=== PATIENT | female | born 1940 | race Caucasian/White ===

== ENCOUNTER → 2018-07-01 | Outpatient (CLI) | payer MEDICARE, BC ==
--- NOTE | 2018-07-01 13:39 | US ---
EXAMINATION TYPE: US carotid duplex BILAT DATE OF EXAM: 07/01/2018 COMPARISON: US 2010 CLINICAL HISTORY: 77-year-old female Z85.3 personal history of malignant neoplasm breast. Syncope and Collapse. Patient fell 4 days ago. Lightheadedness. TECHNIQUE: Carotid duplex ultrasound examination. Indirect Doppler criteria was utilized. FINDINGS: EXAM MEASUREMENTS: RIGHT: Peak Systolic Velocity (PSV) cm/sec ----- Right CCA: 76.4 ----- Right ICA: 91.0 ----- Right ECA: 77.9 ICA/CCA ratio: 1.2 RIGHT: End Diastole cm/sec ----- Right CCA: 21.2 ----- Right ICA: 24.1 ----- Right ECA: 8.1 LEFT: Peak Systolic Velocity (PSV) cm/sec ----- Left CCA: 67.7 ----- Left ICA: 104.3 ----- Left ECA: 86.6 ICA/CCA ratio: 1.5 LEFT: End Diastole cm/sec ----- Left CCA: 16.0 ----- Left ICA: 30. ----- Left ECA: 0.0 VERTEBRALS (direction of flow): Right Vertebral: Antegrade Left Vertebral: Antegrade Rhythm: Normal Mild to moderate atherosclerotic changes bilateral carotid bifurcations, left greater than right. Tor tuous left ICA. IMPRESSION: No hemodynamically significant stenosis appreciated in either internal carotid artery. Criteria for Assigning % of Stenosis / Diameter reduction (Estimation based on the indirect measurements of the internal carotid artery velocities (ICA PSV). 1. Normal (no stenosis)=ICA PSV < 125 cm/s: ratio < 2.0: ICA EDV<40 cm/s. 2. Less than 50% stenosis=ICA PSV < 125 cm/s: ratio < 2.0: ICA EDV<40 cm/s. 3. 50 to 69% stenosis=ICA PSV of 125 to 230 cm/s: ration 2.0 ? 4.0: ICA EDV 40-100 cm/s. 4. Greater than 70% stenosis to near occlusion= ICA PSV > 230 cm/s: ratio > 4.0: ICA EDV > 100 cm/s. 5. Near occlusion= ICA PSV velocities may be low or undetectable: variable ratio and ICA EDV. 6. Total occlusion=unable to detect flow.
--- NOTE | 2018-07-01 14:37 | CT ---
EXAMINATION TYPE: CT brain wo con DATE OF EXAM: 07/01/2018 COMPARISON: 11/10/2010 HISTORY: Fall with frontal injury 06/27/18 CT DLP: 926.5 mGycm Automated exposure control for dose reduction was used. FINDINGS: Nasal septal deviation noted. Dense atherosclerotic change of the vertebral arteries. Intracranial at herosclerotic change of the carotid arteries. No midline shift or mass effect. Mild to moderate generalized degenerative change. Low-attenuation th e white matter is nonspecific but most typical remote microvascular ischemia. Calvarium intact. Hyperostosis of the frontal bone noted. IMPRESSION: DEGENERATIVE AND NONSPECIFIC WHITE MATTER CHANGES MOST TYPICAL REMOTE MICROVASCULAR ISCHEMIA. NO ACUT E HEMORRHAGE OR MASS EFFECT.
== END | disposition home or self-care (01) ==
LOC: RADUSWWP 12:34
PROVIDERS: ATTEND Family Medicine
DX: R55 Syncope and collapse (principal)
CPT/HCPCS: 70450; 93005; 93880

== ENCOUNTER → 2021-11-01 | Outpatient (CLI) | payer MEDICARE, BC ==
--- NOTE | 2021-11-01 15:25 | CT ---
EXAMINATION TYPE: CT TAVR Planning DATE OF EXAM: 11/01/2021 HISTORY: Non rheumatic aortic valve insufficiency CT DLP: 1627.40 mGycm Automated Exposure Control for Dose Reduction was Utilized. CONTRAST: CT scan of the chest, abdomen and pelvis is performed with IV Contrast, patient injected with 125 ml mL of Isovue 370. COMPARISON: None TECHNIQUE: Helical imaging obtained through the chest, abdomen and pelvis during arterial phase jojo arelis administration of radiographic contrast intravenously. FINDINGS: See report from [employer] regarding preprocedural planning Vasculature: There is scattered atherosclerosis of the arterial vasculature. Ascending thoracic aorta measures up to 3.5 cm in diameter. There is aortic valve leaflet calcifications as well as coronary artery atherosclerosis.. The visualized portions of the internal carotid arteries and vertebral arter ies are patent. No evidence for ascending or descending thoracic aorta aneurysm. There is tortuosity to the abdominal aorta with no evidence of aneurysm. CHEST: Lower Neck and Thyroid: Focal consolidation, pneumothorax pleural effusion. Lungs: No significant findings Central Airway: No significant findings Pleura: No significant findings Pulmonary Arteries: No significant findings Heart and Pericardium: Coronary artery atherosclerosis present. Lymph Nodes: No significant findings Mediastinum & Esophagus: No significant findings ABDOMEN/PELVIS: Please note arterial phase of the imaging limits detailed evaluation of the solid abdominal organs. Liver: No significant findings Spleen: No significant findings Kidneys: There is a left renal cyst noted. There is no evidence for hydronephrosis. Excreted IV contr ast is seen within the collecting systems without evidence for filling defect to suggest mass. Adrenal Glands: No significant findings Pancreas: No significant findings Gallbladder: No significant findings Bowel and Mesentery: No significant findings Lymph Nodes: No significant findings Urinary Bladder: No significant findings Pelvic Organs: No significant findings Other: Scoliosis changes are noted throughout the spine most pronounced at L2-L3 with dextro scoliosi s. There is significant degeneration changes of the shoulders bilaterally left greater than right as well as the hips right greater than left. Anterior umbilical fat-containing hernia Other Lines/Tubes/Devices/Hardware: None IMPRESSION: 1. See report from [employer] regarding preprocedural planning 2. Mild to moderate Aortic valve leaflet calcifications.
== END | disposition home or self-care (01) ==
LOC: LABWHC1 10:14
PROVIDERS: ATTEND Internal Medicine Interventional Cardiology
DX: I35.0 Nonrheumatic aortic (valve) stenosis (principal)
CPT/HCPCS: 71275; 74174; 93005; 36415; Q9967

== ENCOUNTER 2021-11-28 06:00 | Day surgery (SDC) | payer MEDICARE, BC ==
[~2021-11-28 06:00] MED LIST: ALPRAZolam 0.25 MG TAB PO PRN; ALPRAZolam 0.5 MG TAB PO PRN; ASPIRIN 325 MG TAB PO STA; ATORVASTATIN 80 MG TAB PO STA; HEPARIN SODIUM,PORCINE 10,000 UNIT in SODIUM CHLORIDE 0.9% 1,000 ML IRRIGATION PRN; HEPARIN SODIUM,PORCINE 2,500 UNIT in SODIUM CHLORIDE 0.9% 250 ML IRRIGATION PRN; NITROGLYCERIN SL TABS 0.4 MG TAB SUBLINGUAL PRN
[2021-11-28] MEDS ORDERED: ASPIRIN 81 MG ONE (06:12)
[2021-11-28] MEDS: SODIUM CHLORIDE 0.9% 1,000 ML in EMPTY BAG 1 BAG IV SCH ×2 (06:25→19:54)
[2021-11-28 06:33] LABS: Basophils # (A) 0.1 k/uL (0-0.2); Basophils % (A) 1 %; Eosinophils # (A) 0.2 k/uL (0-0.7); Eosinophils % (A) 3 %; HCT 46.1 % (34.0-46.0); HGB 14.9 gm/dL (11.4-16.0); Lymphocytes # (A) 1.7 k/uL (1.0-4.8); Lymphocytes % (A) 27 %; MCH 29.4 pg (25.0-35.0); MCHC 32.3 g/dL (31.0-37.0); MCV 90.9 fL (80.0-100.0); Mean Platelet Volume 7.6; Monocytes # (A) 0.5 k/uL (0-1.0); Monocytes % (A) 7 %; Neutrophils # (A) 3.9 k/uL (1.3-7.7); Neutrophils % (A) 61 %; Platelet Count 243 k/uL (150-450); RBC 5.07 m/uL (3.80-5.40); RDW 12.9 % (11.5-15.5); WBC 6.5 k/uL (3.8-10.6)
[2021-11-28 06:48] LABS: African American GFR (CKD) >90 (>60 ml/min/1.73 sqM); Anion Gap 10 mmol/L; Blood Urea Nitrogen 16 mg/dL (7-17); Calcium 9.2 mg/dL (8.4-10.2); Carbon Dioxide 28 mmol/L (22-30); Chloride 98 mmol/L (98-107); Glucose 99 mg/dL (74-99); Non-African American GFR(CKD) 83 (>60 ml/min/1.73 sqM); Potassium 3.9 mmol/L (3.5-5.1); Sodium 136 mmol/L (137-145)
[2021-11-28] MEDS ORDERED: VERAPAMIL 2.5 MG/ML 2 ML AMP ONE (07:22)
[2021-11-28] MEDS ORDERED: MIDAZOLAM 2 MG/2 ML VIAL IV ONE (07:45)
[2021-11-28] MEDS ORDERED: HEPARIN SODIUM 1,000 UN/ML (10ML VL) ONE (07:51)
[2021-11-28] MEDS ORDERED: LIDOCAINE 1% INJ 10MG/ML (30 ML VIAL-PF) SQ ONE (07:51)
[2021-11-28] MEDS: HEPARIN SODIUM 1,000 UN/ML (10ML VL) IV ONE ×2 (08:11→09:18)
[2021-11-28] MEDS ORDERED: HYDROmorphone 0.5 MG/0.5 ML SYRINGE IVP ONE (08:27)
[2021-11-28] MEDS ORDERED: IOPAMIDOL-370 125ML BTL INJ ONE (08:50)
[2021-11-28] MEDS ORDERED: IOPAMIDOL-370 100ML BTL INJ ONE (08:50)
[2021-11-28] MEDS ORDERED: CLOPIDOGREL 75 MG TAB ONE (08:55)
[2021-11-28] MEDS ORDERED: CLOPIDOGREL 75 MG TAB PO ONE (08:58)
[2021-11-28] MEDS ORDERED: NITROGLYCERIN 1000MCG/10ML SYRINGE INTRACORON ONE (09:02)
[2021-11-28] MEDS ORDERED: IOPAMIDOL-300 100ML BTL INJ ONE (09:05)
[2021-11-28] MEDS: SODIUM CHLORIDE 0.9% 1,000 ML IV SCH ×2 (09:40→22:54)
[2021-11-28] MEDS: METOPROLOL TARTRATE 12.5 MG TAB PO SCH ×3 (16:26→19:58)
[2021-11-28] MEDS: lisinopriL 10 MG TAB PO SCH (19:56)
[2021-11-28] MEDS: hydroCHLOROthiazide 12.5 MG CAP PO SCH (19:56)
[2021-11-28] MEDS ORDERED: ASPIRIN 81 MG PO SCH (21:00)
--- NOTE | 2021-11-28 22:38 | CC ---
CARDIAC CATHETERIZATION REPORT PROCEDURES PERFORMED: 1. Intravascular coronary lithotripsy/shockwave balloon angioplasty. 2. PTCA and stenting of proximal LAD with drug-eluting stent. PERFORMED BY: Dr. Fifi Munguia. Moderate conscious sedation time was 77 minutes. Patient was administered Versed. Oxygen saturation, hemodynamics, and EKG were monitored closely. CLINICAL INFORMATION: Mrs. Karen Allen is an 81-year-old lady with a history of severe aortic stenosis, hypertension, hyperlipidemia, and a significant lesion in the proximal/mid LAD of 95% with heavy calcification. She was seen by structural heart team, specifically Dr. Escobedo and Jaylin and advised to have PCI of LAD and percutaneous aortic valve implant following this. Risks, benefits, options, and rationale for PCI were explained to the patient and . They understood all details and wished to proceed with the procedure. PROCEDURE NOTE: Under local anesthesia and strict aseptic precautions, a 6-Colombian introducer was placed in the right femoral artery. I used initially an XB LAD 3.5, but I had difficulty seating it. I switched over to a 3.5 Q-Curve guide catheter of 6-Colombian caliber and was able to get good seating in the left main. With a combination of Whisper wire with a steep curve and a 45-degree SuperCross, I was able to get into the LAD and crossed the tight lesion in the LAD and kept the wire distally. Patient had chest pain with mild ST-segment elevation in the anterior leads because of not much flow after I crossed it. The SuperCross catheter was exchanged initially for a 2.0 caliber NC trek, but I could not advance the balloon. I switched over to a 1.5 caliber mini Trek, with this I gave 2 inflations and then I was able to advance a 2.2 NC trek 12 mm length and dilated up to 12 atmospheres. Following this, I used a 2.5 caliber 20 mm long NC Trek balloon and pre-dilated the lesion. Decent angiographic result was achieved, but there was significant calcification. I then performed a shockwave balloon dilatation. Four dilatations were performed. This was a 12-mm shockwave balloon. Each dilatation was of 10 seconds each with 2 dilatations in the distal and 2 dilatations of the proximal area. The patient tolerated the procedure well. The balloon was then taken out. I advanced a 3.0 caliber 23-mm long Xience stent and deployed this at 13 atmospheres. Patient had chest pain, mild ST elevation. Excellent angiographic result without complication was achieved. The patient received 3500 units of heparin and subsequent 1000 units. ACT was kept between 250 and 300. Excellent angiographic result was achieved. The sheath was taken out and Angio-Seal device used to secure hemostasis. Results were discussed with the patient and her . She will be discharged tomorrow if she remains stable. She was sent to the room in a stable condition. The patient will be on aspirin and Plavix without interruption for 12 months unless she has any contraindication down the road. She will be on statin, beta-blockers as well as aspirin and Plavix. The patient will be discharged tomorrow if she remains stable. MMODL / IJN: [id number] /
[2021-11-29 05:14] VITALS: TEMP 97.9
[2021-11-29] MEDS ORDERED: LEVOTHYROXINE 50 MCG TAB PO SCH (06:30)
[2021-11-29 07:21] VITALS: BP 143/68; PULSE 59; RESP 15
[2021-11-29] MEDS: METOPROLOL TARTRATE 12.5 MG TAB PO SCH (08:05)
[2021-11-29] MEDS: lisinopriL 10 MG TAB PO SCH (08:05)
[2021-11-29] MEDS: hydroCHLOROthiazide 12.5 MG CAP PO SCH (08:05)
[2021-11-29] MEDS ORDERED: ATORVASTATIN 40 MG TAB PO SCH (09:00)
[2021-11-29] MEDS ORDERED: CLOPIDOGREL 75 MG TAB PO SCH (09:00)
[2021-11-29 11:51] LABS: African American GFR (CKD) >90 (>60 ml/min/1.73 sqM); Anion Gap 8 mmol/L; Blood Urea Nitrogen 11 mg/dL (7-17); Calcium 8.8 mg/dL (8.4-10.2); Carbon Dioxide 28 mmol/L (22-30); Chloride 95 mmol/L (98-107); Glucose 90 mg/dL (74-99); Non-African American GFR(CKD) 86 (>60 ml/min/1.73 sqM); Potassium 3.8 mmol/L (3.5-5.1); Sodium 131 mmol/L (137-145)
[2021-11-29 11:56] LABS: Basophils % (A) 0 %; Eosinophils # (A) 0.2 k/uL (0-0.7); Eosinophils % (A) 2 %; HGB 13.1 gm/dL (11.4-16.0); Lymphocytes % (A) 13 %; MCH 29.3 pg (25.0-35.0); MCHC 32.7 g/dL (31.0-37.0); MCV 89.6 fL (80.0-100.0); Mean Platelet Volume 8.5; Monocytes # (A) 0.5 k/uL (0-1.0); Monocytes % (A) 6 %; Neutrophils # (A) 5.5 k/uL (1.3-7.7); Neutrophils % (A) 76 %; Platelet Count 213 k/uL (150-450); RBC 4.46 m/uL (3.80-5.40); RDW 12.8 % (11.5-15.5); WBC 7.3 k/uL (3.8-10.6)
--- NOTE | 2021-11-30 06:55 | DS ---
DISCHARGE SUMMARY DIAGNOSES: 1. Severe aortic stenosis. 2. Coronary artery disease with mid left anterior descending stenosis. 3. Hypertension. HOSPITAL COURSE: This lady has a history of severe aortic stenosis and had a cardiac cath about 2 weeks ago, was found to have a significant disease in mid LAD with moderate noncritical disease in other vessels. She was seen by structural heart disease team and advised to have a PCI of LAD and then a percutaneous aortic valve implant to follow. She was brought in for the procedure electively. Yesterday, I performed PCI of mid LAD. Shockwave laser balloon inflation was performed and then a 3.0 caliber 23 mm stent was deployed. Excellent angiographic result was achieved. This morning, she is asymptomatic. Her right groin is clean and dry with a focal area of tenderness. No hematoma or bruit. She has the EKG today, which shows precordial minor T-wave changes, which are nonspecific. She is asymptomatic, ambulating well. Vitals are stable. No JVD. S1 and S2 heard normally. Ejection systolic murmur at the base is audible. Lungs reveal bilateral decent air entry. Abdomen is soft, nontender. Lower extremities reveal normal pulses. No edema. Central nervous system is grossly within normal limits. I am recommending that she can be discharged today and we will see her in the office next week. I am suggesting that she can proceed with a TAVR whenever okayed by the structural heart team probably in the next 2 to 3 weeks or so. She will continue aspirin, Plavix, and beta blockers at a small dose of 12.5 mg b.i.d. and rosuvastatin will be 10 mg daily upon discharge. Discharge instructions regarding activity, diet, and medications were given. The patient will be discharged later on today. MMODL / IJN: [id number] /
== END 2021-11-29 11:20 | disposition home or self-care (01) ==
LOC: CATHCVL 06:00 → 6NMEDSUR 09:15 → CATHCVL 11-29 11:20
PROVIDERS: ATTEND Internal Medicine Interventional Cardiology
DX: I35.0 Nonrheumatic aortic (valve) stenosis (principal); I25.10 Atherosclerotic heart disease of native coronary artery without angina pectoris; I10 Essential (primary) hypertension; E78.5 Hyperlipidemia, unspecified
CPT/HCPCS: 80048 ×2; 85025 ×2; 87635; C1760; C1769 ×4; C1887 ×4; C1725 ×3; C1894; C1874; C1761; J2250; J2001; J1644; J1170; Q9967 ×2

== ENCOUNTER 2021-12-14 08:00 | Inpatient (IN) | payer MEDICARE, BC ==
[2021-12-28] MEDS ORDERED: PROTAMINE SULFATE 250 MG in EMPTY BAG 1 BAG IV PRN (06:00)
[2021-12-28] MEDS ORDERED: CLOPIDOGREL 75 MG TAB PO ONE (06:00)
[2021-12-28] MEDS ORDERED: METOPROLOL TARTRATE 25 MG TAB PO ONE (06:00)
[2021-12-28] MEDS ORDERED: ASPIRIN 325 MG TAB PO ONE (06:00)
[2021-12-28] MEDS ORDERED: SODIUM CHLORIDE 0.9% 500 ML 500 ML INTRAARTER PRN (06:00)
[2021-12-28] MEDS ORDERED: INSULIN REGULAR 100 UNIT in SODIUM CHLORIDE 0.9% 100 ML IV PRN (06:00)
[2021-12-28] MEDS ORDERED: ATORVASTATIN 10 MG TAB PO ONE (06:00)
[2021-12-28] MEDS ORDERED: ELECTROLYTE-A SOLUTION 1,000 ML with POTASSIUM CHLORIDE 100 MEQ, MAGNESIUM SULFATE 16 M... IV PRN ×5 (06:00)
[2021-12-28] MEDS ORDERED: NITROGLYCERIN-D5W PMX 25 MG/250 ML BTL IV PRN (06:00)
[2021-12-28] MEDS ORDERED: CLEVIDIPINE BUTYRATE 25 MG in EMPTY BAG 1 BAG IV PRN (06:00)
[2021-12-28] MEDS ORDERED: LACTATED RINGERS 1,000 ML IV SCH ×2 (06:00→10:14)
[2021-12-28] MEDS ORDERED: TRANEXAMIC ACID 2,000 MG in SODIUM CHLORIDE 0.9% 80 ML IV PRN (06:00)
[2021-12-28 07:05] LABS: Glucose,Whole Blood 97 mg/dL (70-110)
[2021-12-28] MEDS ORDERED: NEOSTIGMINE 1 MG/ML 10 ML VIAL ONE (08:02)
[2021-12-28] MEDS ORDERED: fentaNYL (PF) 50 MCG/ML 2 ML AMP ONE (08:02)
[2021-12-28] MEDS ORDERED: GLYCOPYRROLATE 0.2 MG/ML 2 ML VIAL ONE (08:02)
[2021-12-28] MEDS ORDERED: MIDAZOLAM 2 MG/2 ML VIAL ONE (08:02)
[2021-12-28] MEDS ORDERED: ROCURONIUM 10 MG/ML (5 ML VIAL) IV ONE (08:02)
[2021-12-28] MEDS ORDERED: ePHEDrine 50 MG/ML 1 ML VIAL ONE (08:02)
[2021-12-28] MEDS ORDERED: PHENYLEPHRINE-0.9% NACL SYG 1,000 MCG/10 ML SYRINGE ONE (08:02)
[2021-12-28] MEDS ORDERED: PROTAMINE SULFATE 10 MG/ML 5 ML VIAL IV ONE (08:02)
[2021-12-28] MEDS ORDERED: SUCCINYLCHOLINE CHLORIDE 200 MG/10 ML VIAL IV ONE (08:02)
[2021-12-28] MEDS ORDERED: LIDOCAINE 2% INJ 20 MG/ML (2 ML VIAL) ONE (08:02)
[2021-12-28] MEDS ORDERED: HEPARIN SODIUM,PORCINE 5,000 UNIT/ML 1 ML VIAL ONE (08:02)
[2021-12-28] MEDS ORDERED: NITROGLYCERIN-D5W PMX 50 MG/250 ML BOTTLE IV ONE (08:02)
[2021-12-28] MEDS ORDERED: PROPOFOL 10 MG/ML 20 ML VIAL IV ONE (08:02)
[2021-12-28] MEDS ORDERED: IOPAMIDOL-370 125ML BTL INJ ONE (09:12)
[2021-12-28 09:55] LABS: Glucose,Whole Blood 109 mg/dL (70-110)
--- NOTE | 2021-12-28 10:12 | P.ANPRN ---
Procedure Note - Anesthesia - Invasive Line Left Arterial Line Time Out Performed: Yes Date of Procedure: 12/28/21 Time of Procedure: 07:45 Location of Patient: CVL Arterial Line Location: Brachial Ultrasound Used: Yes Purpose - Visualization and Identification of Vasculature: Yes Image Stored and Saved: No Narrative: Central line placement per sterile protocol utilized. Informed consent obtained from the patient. Procedure was performed under complete aseptic precautions. The left wrist is slightly extended and placed on a roll of cloth. Initial attempts at radial artery under aseptic precautions, failed. Left Brachiall artery palpated and appeared to have a intact collateral circulation. Front of the AC fossa was cleaned with ChloraPrep. It was draped and 2 mL of 1% lidocaine was infiltrated . A 20-gauge two and half inch Arrow arterial catheter was inserted and a bright red blood/back was noticed. It was connected to the pressure monitoring line and the flashback was confirmed. The line was sutured into the skin. Tegaderm dressing was applied. Patient mary rated the procedure very well with no apparent complications. - MINDY Intraop Pre Bypass MINDY Intraop - Anesthesia Indication: transcatheter aortic valve replacement procedure Date of Procedure: 12/28/21 Pre-operative Diagnosis: severe aortic stenosis Post-operative Diagnosis: severe aortic stenosis status post-transcatheter aortic valve replacement Surgeon: Song Sharma Left Ventricle: EO 55-60% Ejection Fraction: Normal Regional Wall Motion Abnormalities: None Left Ventricle Hypertrophy: Yes (mild) R. Ventricle Function: Normal Aortic Valve: severely calcified. Mean aortic gradient 35 mmHg in peak of 55 mmHg. valve area 0.7 cm2 Anatomy: Trileaflet Aortic Stenosis: Severe Aortic Regurgitation: Moderate Mitral Stenosis: None Mitral Regurgitation: Mild Tricuspid Stenosis: None Tricuspid Regurgitation: Trace Pulmonic Stenosis: None Pulmonic Regurgitation: None R. Atrial Dilation: No R. Atrial PFO: No L. Atrial Dilation: No Aortic Dissection: No Aortic Calcification: None Plural Effusion: None - MINDY Intraop Post Bypass MINDY Intraop Post Bypass Procedure Performed: transcatheter aortic valve replacement procedure Left Ventricle: ejection fraction 55-60% Ejection Fraction: Normal Regional Wall Motion Abnormalities: None R. Ventricle Function: Normal Aortic Valve: prosthetic aortic valve in situ. Appears to be seated well. No significant paravalvular Leaks seen. Peak gradient through the prosthetic valve is 10 mmHg and mean is 5 mmHg. Mitral Valve: Unchanged Tricuspid: Unchanged Pulmonic: Unchanged Aortic Dissection: No
[2021-12-28] MEDS ORDERED: Magnesium Replacement Protocol 1 EACH MISC MISCELLANE PRN ×2 (10:14→19:08)
[2021-12-28] MEDS ORDERED: Potassium Replacement Protocol 1 EACH MISC MISCELLANE PRN ×2 (10:14→19:08)
[2021-12-28] MEDS ORDERED: Phosphorus Replacement Protoco 1 EACH MISC MISCELLANE PRN (10:14)
[2021-12-28] MEDS ORDERED: ACETAMINOPHEN TAB 500 MG TAB PO PRN (10:14)
[2021-12-28] MEDS ORDERED: CALCIUM GLUCONATE IN NACL 2 GM in SALINE 1 100ML.BAG IVPB PRN (10:14)
[2021-12-28] MEDS ORDERED: IPRATROPIUM-ALBUTEROL 3 ML NEB INHALATION PRN (10:14)
[2021-12-28] MEDS ORDERED: ONDANSETRON 4 MG/2 ML VIAL IVP PRN (10:14)
--- NOTE | 2021-12-28 10:18 | P.OP ---
Date of Procedure: 12/28/21 Preoperative Diagnosis: Aortic valve stenosis Postoperative Diagnosis: Same Procedure(s) Performed: Transcatheter aortic valve implantation via right percutaneous transfemoral approach with 23 mm Macy II valve prosthesis Implants: 23 mm Macy II Anesthesia: GETA Surgeon: Song Sharma (Cardiac surgery) Cloth Examiner #1: Alex Bello (balance wheel arm burnisher) Cloth Examiner #2: Nnamdi Mosqueda (Second interventional cardiology) Estimated Blood Loss (ml): 20 IV fluids (ml): 1,000 Pathology: none sent Condition: stable Disposition: ICU Indications for Procedure: 81-year-old female with symptomatic tricuspid aortic valvular stenosis. She also had a LAD lesion. She was referred by Dr. Fifi Munguia. The patient was evaluated in the high risk valve clinic with shared decision-making with Dr. Nnamdi Douglass And it was felt the patient was best served undergoing intervention on her LAD followed by transcatheter valve implantation. Successful intervention on the left anterior descending was performed by Dr. Munguia. Patient was then scheduled for elective TAVR. Operative Findings: Valve appeared to be tricuspid. There is significant gradients across the valve. The valve was implanted at a good level. There was no significant paravalvular leak. Gradients were mild following valve implant. Groin sealed without difficulty. Description of Procedure: Patient was brought to the catheterization laboratory. She is placed supine on the table anesthetized and intubated. She was appropriately positioned prepped and draped. Left femoral arterial and venous access was obtained by Dr. Mosqueda. 6-Jamaican sheaths were placed in each vessel. This was performed under ultrasound guidance. The arterial sheath was then exchanged for a long 6-Jamaican sheath and a pigtail catheter advanced into the right coronary sinus of Valsalva. Through the venous sheath a temporary pacer was advanced upwards into the right ventricle and good positioning and thresholds were obtained. Ultrasound guidance was then used to obtain access in the right common femoral artery. 6-Jamaican sheath was placed and then 2 Perclose devices were deployed. An 8-Jamaican sheath was placed. Stiff wire was advanced and the 8-Jamaican sheath was exchanged for the 14-Jamaican Hines sheath. The patient was systemically heparinized. Aortic valve was crossed from the right side straight wire and a pigtail catheter advanced into the apex of the left ventricle. Stiff wire was placed in the apex of the ventricle. 23 mm Macy II valve prosthesis was lo aded on the back table and brought up onto the field. It was advanced over the stiff wire through the right femoral sheath into the descending thoracic aorta. The balloon was pulled back into the stent graft and then the prosthesis was curved around the arch and across the aortic valve. It was positioned in appropriate depth across the aortic valve using angiographic positioning through the pigtail. The valve was then deployed under rapid ventricular pacing. This proceeded without event. The valve displacement system was pulled back. Valve was examined with the MINDY. It was noted to be fully expanded in good position and with no paravalvular leak. Radiance were measured and were forming and 10 peak. Heparin was reversed with protamine. The catheters were removed and good hemostasis obtained in both groins by the cardiology team. The patient was extubated and transferred to the ICU in stable condition.
[2021-12-28] MEDS ORDERED: lisinopriL 10 MG TAB PO STA (10:50)
--- NOTE | 2021-12-28 11:07 | XR ---
EXAMINATION TYPE: XR chest 1V portable DATE OF EXAM: 12/28/2021 COMPARISON: Chest x-ray 10/26/2021 HISTORY: Postop cardiac surgery TECHNIQUE: Single frontal view of the chest is obtained. FINDINGS: Right hemidiaphragm remains elevated. No evident pneumothorax or pleural effusion. Cardiom ediastinal silhouette is stable. Patient shows post TAVR change at the root of the aorta. The aorta i s dense. There are overlying leads. Probable basilar atelectasis change present on the left. IMPRESSION: Postprocedural changes, probable basilar atelectasis, follow-up as indicated.
[2021-12-28] MEDS ORDERED: hydroCHLOROthiazide 12.5 MG CAP PO STA (11:27)
[2021-12-28 11:46] LABS: Glucose,Whole Blood 131 mg/dL (70-110)
[2021-12-28 12:00] LABS: Basophils % (A) 0 %; Eosinophils # (A) 0.1 k/uL (0-0.7); Eosinophils % (A) 1 %; HCT 37.9 % (34.0-46.0); HGB 12.9 gm/dL (11.4-16.0); Lymphocytes # (A) 0.7 k/uL (1.0-4.8); Lymphocytes % (A) 9 %; MCH 29.9 pg (25.0-35.0); Mean Platelet Volume 8.6; Monocytes # (A) 0.5 k/uL (0-1.0); Monocytes % (A) 5 %; Neutrophils # (A) 7.1 k/uL (1.3-7.7); Neutrophils % (A) 84 %; Platelet Count 196 k/uL (150-450); RBC 4.31 m/uL (3.80-5.40); WBC 8.5 k/uL (3.8-10.6)
--- NOTE | 2021-12-28 12:04 | P.CNPUL ---
History of Present Illness Consult date: 12/28/21 Requesting physician: Song Sharma Reason for consult: other (Critical care management) Chief complaint: Aortic valve stenosis History of present illness: This is a very pleasant 81-year-old female patient with a known history of hypertension, hyperlipidemia, hypothyroidism, gastroesophageal reflux disease and coronary artery disease with previous stenting to the LAD and she is also known to have severe aortic stenosis with a peak gradient of 76 mmHg. She was admitted today electively and had undergone a transcatheter aortic valve implantation utilizing a Macy II prosthetic valve. She is seen today in consultation in the intensive care unit. She is awake and alert in no acute distress. She is continued on oxygen at 2 L/m with O2 saturations in the mid 90s. She is in sinus bradycardia. Blood glucose 131. She is lactated Ringer's at 50 MLS per hour. Chest x-ray reveals evidence of a right hemidiaphragm elevation. No pneumothorax or pleural effusion. Stable cardiomediastinal silhouette. Some basilar atelectasis. Bilateral groin sites are stable Review of Systems REVIEW OF SYSTEMS: CONSTITUTIONAL: Denies any recent significant weight loss or weight gain. EYES: Denies change in vision. EARS, NOSE, MOUTH, THROAT: Denies headaches, denies sore throat. CARDIOVASCULAR: Denies chest pain, palpitations or syncopal episodes. RESPIRATORY: Denies shortness of breath, cough, congestion or hemoptysis. GASTROINTESTINAL: Denies change in appetite, denies abdominal pain GENITOURINARY: Denies hematuria, denies infections. MUSKULOSKELETAL: Denies pain, denies swelling. INTEGUMENTARY: Denies rash, denies eczema. NEUROLOGICAL: Denies recent memory loss, no recent seizure activity. PSYCHIATRIC: Denies anxiety, denies depression. HEMATOLOGIC/LYMPHATIC: Denies anemia, denies enlarged lymph nodes. Past Medical History Past Medical History: GERD/Reflux, Hyperlipidemia, Hypertension, Thyroid Disorder Additional Past Medical History / Comment(s): aortic valve stenosis,Overactive bladder. Recent Increased SOB, arthritis in hands. needs to be upright more to sleep History of Any Multi-Drug Resistant Organisms: None Reported Past Surgical History: Heart Catheterization With Stent Additional Past Surgical History / Comment(s): " bandaid " sugery through umbilicus -sling procedure years ago Bilateral cataracts,1 cardiac stent Past Anesthesia/Blood Transfusion Reactions: Postoperative Nausea & Vomiting (PONV) Additional Past Anesthesia/Blood Transfusion Reaction / Comment(s): no blood transfusions. Date of Last Stent Placement:: 11-24 Smoking Status: Never smoker - Past Family History Mother Family Medical History: Cancer Additional Family Medical History / Comment(s): stomach cancer Father Additional Family Medical History / Comment(s): brain aneurysm Medications and Allergies Home Medications Medication Instructions Recorded Confirmed Type Aspirin 81 mg PO HS 10/25/21 12/28/21 History Benazepril/Hydrochlorothiazide 1 tab PO BID 10/25/21 12/22/21 History [Benazepril-Hctz 10-12.5 mg Tab] Levothyroxine Sodium [Synthroid] 50 mcg PO QAM 10/25/21 12/28/21 History Omeprazole 20 mg PO Q48H 10/25/21 12/22/21 History Oxybutynin Chloride [Ditropan] 5 mg PO BID 10/25/21 12/28/21 History Clopidogrel [Plavix] 75 mg PO DAILY #90 tablet 11/28/21 12/22/21 Rx Metoprolol Tartrate [Lopressor] 12.5 mg PO BID 30 Days #60 tablet 11/28/21 12/28/21 Rx Rosuvastatin [Crestor] 10 mg PO HS #90 tablet 11/28/21 12/28/21 Rx Allergies Allergy/AdvReac Type Severity Reaction Status Date / Time No Known Allergies Allergy Verified 12/22/21 16:03 Physical Exam Vitals: Vital Signs Temp Pulse Pulse Resp BP BP Pulse Ox 12/28/21 11:30 58 L 18 97 12/28/21 11:00 56 L 20 95 12/28/21 10:30 56 L 13 95 12/28/21 10:00 97.3 F L 60 15 98 12/28/21 09:50 16 97 12/28/21 06:50 97.9 F 66 16 173/77 153/61 97 Intake and Output 12/27/21 12/28/21 12/28/21 22:59 06:59 14:59 Intake Total 250 Output Total 200 Balance 50 Intake: IV 250 Lactated Ringers 1,000 ml 50 @ 50 mls/hr IV .Q20H GUY Rx#:[id number] Output: Urine 200 Other: Weight 69.3 kg ABP, PAP, CO, CI - Last 8 Hours Arterial Blood Pressure 153/57 Arterial Blood Pressure 149/54 Arterial Blood Pressure 148/50 Arterial Blood Pressure 145/52 Arterial Blood Pressure 162/64 GENERAL EXAM: Alert, pleasant 81-year-old female, on 2 L nasal cannula, comfortable in no apparent distress. HEAD: Normocephalic. EYES: Normal reaction of pupils, equal size. NOSE: Clear with pink turbinates. THROAT: No erythema or exudates. NECK: No masses, no JVD. CHEST: No chest wall deformity. LUNGS: Equal air entry with no crackles, wheeze, rhonchi or dullness. CVS: S1 and S2 normal with no audible murmur, regular rhythm. ABDOMEN: No hepatosplenomegaly, normal bowel sounds, no guarding or rigidity. SPINE: No scoliosis or deformity SKIN: No rashes CENTRAL NERVOUS SYSTEM: No focal deficits, tone is normal in all 4 extremities. EXTREMITIES: Bilateral groin site stable. There is no peripheral edema. No clubbing, no cyanosis. Peripheral pulses are intact. Results - Laboratory Findings Abnormal lab findings: Abnormal Labs 12/26/21 12/28/21 10:29 11:45 POC Glucose (mg/dL) 131 H Crossmatch See Detail - Diagnostic Findings Chest x-ray: image reviewed Assessment and Plan Assessment: Symptomatic aortic valve stenosis. Status post transcatheter aortic valve implantation via the right percutaneous transfemoral approach with a 23 mm Macy II prosthesis. Postoperative day #0 Coronary artery disease status post stenting to the LAD Hypertension Hyperlipidemia Hypothyroidism Gastroesophageal reflux disease Plan: The patient was seen and evaluated Chest x-ray, medications and labs reviewed Titrate the FiO2 as tolerated Room for DVT prophylaxis Continue lactated Ringer's at 50 MLS per hour Continue to monitor closely here in the intensive care unit We will continue to follow and make further recommendations based on her cl inical status I have personally seen and examined the patient, performed the documentation and the assessment and plan as written. Number of minutes spent on the visit: 20.
[2021-12-28 12:06] LABS: Ionized Calcium 4.6 mg/dL (4.5-5.3)
[2021-12-28 12:20] LABS: Partial Thromboplastin Time 26.1 sec (22.0-30.0)
[2021-12-28 12:30] LABS: ALT 22 U/L (4-34); AST 26 U/L (14-36); African American GFR (CKD) >90 (>60 ml/min/1.73 sqM); Albumin 3.6 g/dL (3.5-5.0); Alkaline Phosphatase 65 U/L (38-126); Anion Gap 9 mmol/L; Blood Urea Nitrogen 12 mg/dL (7-17); Carbon Dioxide 24 mmol/L (22-30); Chloride 101 mmol/L (98-107); Glucose 120 mg/dL (74-99); Magnesium 1.7 mg/dL (1.6-2.3); Non-African American GFR(CKD) >90 (>60 ml/min/1.73 sqM); Potassium 3.5 mmol/L (3.5-5.1); Sodium 134 mmol/L (137-145); Total Bilirubin 0.7 mg/dL (0.2-1.3); Total Protein 5.7 g/dL (6.3-8.2)
[2021-12-28] MEDS ORDERED: BENZOCAINE/MENTHOL LOZENG 1 EACH LOZENGE MUCOUS MEM PRN (13:36)
--- NOTE | 2021-12-28 19:14 | P.OP ---
Description of Procedure: Transcatheter Aoritc Valve Replacement Operative report PROCEDURE PERFORMED: 1. Percutaneous Aortic Valve Implantation using a 23 mm Macy S3. 2. Transesophageal echocardiography (performed by anesthesia) 3. Ultrasound guided access and repair of right femoral artery access site by Perclose closure device. 4. Placement of temporary pacemaker wire. 5. Aortic root angiography INDICATIONS: 1. 81 year-old with a history of severe symptomatic aortic valve stenosis. 2. Previous surgical aortic valve replacement PERFORMING PHYSICIANS: 1. Alex Bello DO Interventional Cardiology 2. Nnamdi Mosqueda MD Interventional Cardiology. 3. Song Sharma MD, Cardiothoracic Surgeon. SEDATION: General anesthesia provided by anesthesia, see separate note APPROACH: Right femoral artery via percutaneous approach PROCEDURE DESCRIPTION: The patient was discussed at valve clinic with multidisciplinary approach with cardiothoracic surgeon as well as sweater operator and thought better treated with TAVR. Risks, benefits, and alternatives of the procedure had been explained to the patient who understood the risks and agreed to proceed. After consents were obtained, patient was brought to the transcatheter aortic valve implantation room in the cardiac slab miller operator and general anesthesia was provided by the anesthesiologist (see separate report). Next the left femoral artery was accessed using a modified Seldinger technique, ultrasound guidance and micropuncture technique. A 6 Lebanese Rabi sheath was placed in the left femoral artery. Next, a 6-Lebanese pigtail catheter was advanced into the aorta and positioned in the aortic root, aortic root angiography was performed to determine optimal deployment angle. Left femoral venous access was obtained and a 6-Lebanese sheath was placed. A temporary venous pacemaker was advanced into the right ventricle and pacing thresholds were checked and were deemed adequate. The right femoral artery was accessed using modified Seldinger technique, micropuncture technique and under direct ultrasound guidance. Femoral angiogram was done showing access in the common femoral artery and a 6Fr sheath was placed. Next preclose technique was performed using 2 Perclose. Next a 0.035 Lunderquist wire was placed in the Aorta via a pigtail catheter. Over that the arteriotomy was serially dilated and a 14 Fr [place] sheath was placed. Next a 6F- AL1 catheter was advanced over a wire to the aortic root. A straight wire was advanced through the catheter and used to cross the severely stenotic valve. The AL1 was then exchanged for a 6Fr pigtail catheter and pressure measurements were obtained. The 0.035 [place] wire was then positioned in the apex. Next a 23 mm Macy S3 was advanced. The valve was then positioned across the previous surgical aortic valve and confirmed with aortic root angiography. The valve was then deployed in proper position with slow balloon inflation and with rapid pacing. The delivery system was withdrawn back into the arch and MINDY demonstrated a satisfactory result. There was no para valvular leak. There was no evidence of any other significant abnormalities. The preclose Perclose was then deployed in the right femoral artery and still mild ooze and therefore a 6Fr Angioseal was placed and hemostasis was achieved. The rim was then advanced to the level of the iliac bifurcation via the left femoral access. Femoral angiogram was performed that showed no contrast leak. The left femoral angiogram demonstrated an arteriotomy in the common femoral artery and this was repaired using a 6F angioseal device with complete hemostasis. The temporary venous pacemaker was pulled and the sheath was removed and manual pressure was held with hemostasis achieved. The patient was then transported to the ICU in hemodynamically stable condition, requiring no pressor support. COMPLICATIONS: None CONCLUSION: 1. Implantation of 23mm Macy S3 transcatheter aortic valve in valve via right femoral approach under MINDY and fluoro guidance with no para-valvular aortic regurgitation. 2. Placement of temporary pacemaker wire 3. Aortic Root Aortogram. RECOMMENDATIONS: The patient will be monitored in the ICU for hemodynamic and electrical stability.
[2021-12-28] MEDS: POTASSIUM CHLORIDE ER 20 MEQ TAB.ER PO SCH ×2 (20:54→22:07)
[2021-12-28] MEDS: lisinopriL 10 MG TAB PO SCH (20:54)
[2021-12-28] MEDS: METOPROLOL TARTRATE 12.5 MG TAB PO SCH (20:54)
[2021-12-28] MEDS: OXYBUTYNIN CHLORIDE 5 MG TAB PO SCH (20:55)
[2021-12-28] MEDS: MAGNESIUM SULFATE-D5W PMX 1 GM in DEXTROSE/WATER 1 100ML.BAG IVPB SCH ×2 (20:55→22:06)
[2021-12-28] MEDS: hydroCHLOROthiazide 12.5 MG CAP PO SCH (22:07)
[2021-12-28] MEDS: HEPARIN SODIUM,PORCINE/PF 5,000 UNIT/0.5 ML SYRINGE SQ SCH (23:58)
[2021-12-29 04:27] LABS: Basophils % (A) 1 %; Eosinophils # (A) 0.1 k/uL (0-0.7); Eosinophils % (A) 2 %; HCT 37.6 % (34.0-46.0); HGB 12.2 gm/dL (11.4-16.0); Lymphocytes # (A) 0.7 k/uL (1.0-4.8); Lymphocytes % (A) 10 %; MCH 29.2 pg (25.0-35.0); MCHC 32.4 g/dL (31.0-37.0); Mean Platelet Volume 8.2; Monocytes # (A) 0.5 k/uL (0-1.0); Monocytes % (A) 6 %; Neutrophils # (A) 5.6 k/uL (1.3-7.7); Neutrophils % (A) 79 %; Platelet Count 180 k/uL (150-450); RBC 4.18 m/uL (3.80-5.40); RDW 12.9 % (11.5-15.5); WBC 7.2 k/uL (3.8-10.6)
[2021-12-29 04:33] LABS: Ionized Calcium 4.7 mg/dL (4.5-5.3)
[2021-12-29 04:43] LABS: ALT 19 U/L (4-34); AST 31 U/L (14-36); African American GFR (CKD) >90 (>60 ml/min/1.73 sqM); Albumin 3.9 g/dL (3.5-5.0); Alkaline Phosphatase 74 U/L (38-126); Anion Gap 9 mmol/L; Blood Urea Nitrogen 10 mg/dL (7-17); Calcium 8.7 mg/dL (8.4-10.2); Carbon Dioxide 24 mmol/L (22-30); Chloride 98 mmol/L (98-107); Glucose 105 mg/dL (74-99); Magnesium 2.4 mg/dL (1.6-2.3); Non-African American GFR(CKD) 87 (>60 ml/min/1.73 sqM); Potassium 4.2 mmol/L (3.5-5.1); Sodium 131 mmol/L (137-145); Total Bilirubin 0.6 mg/dL (0.2-1.3); Total Protein 6.1 g/dL (6.3-8.2)
[2021-12-29] MEDS ORDERED: LEVOTHYROXINE 50 MCG TAB PO SCH (06:30)
[2021-12-29] MEDS ORDERED: PANTOPRAZOLE 40 MG TABLET PO SCH (07:30)
--- NOTE | 2021-12-29 07:51 | XR ---
EXAMINATION TYPE: XR chest 1V portable DATE OF EXAM: 12/29/2021 5:08 AM COMPARISON: Chest radiographs from 12/28/2021. TECHNIQUE: XR chest 1V portable Frontal view of the chest. CLINICAL INDICATION:Female, 81 years old with history of Post Operative Cardiac Surgery; FINDINGS: Lungs/Pleura: There is no evidence of pleural effusion, focal consolidation, or pneumothorax. Right hemidiaphragm remains elevated. Pulmonary vascularity: Unremarkable. Heart/mediastinum: Cardiomediastinal silhouette is unremarkable. Post TAVR change at the aortic root. Atherosclerotic calcification of the aorta. Musculoskeletal: No acute osseous pathology. IMPRESSION: Postsurgical changes without evidence for acute cardiopulmonary process.
[2021-12-29] MEDS: HEPARIN SODIUM,PORCINE/PF 5,000 UNIT/0.5 ML SYRINGE SQ SCH (08:39)
[2021-12-29] MEDS: METOPROLOL TARTRATE 12.5 MG TAB PO SCH (08:39)
[2021-12-29] MEDS: OXYBUTYNIN CHLORIDE 5 MG TAB PO SCH (08:39)
[2021-12-29] MEDS: lisinopriL 10 MG TAB PO SCH (08:39)
[2021-12-29] MEDS: hydroCHLOROthiazide 12.5 MG CAP PO SCH (08:39)
[2021-12-29 08:57] VITALS: TEMP 97.6
[2021-12-29] MEDS ORDERED: ASPIRIN 81 MG PO SCH (09:00)
[2021-12-29] MEDS ORDERED: bisacodyL 10 MG SUPP RECTAL PRN (09:00)
[2021-12-29] MEDS ORDERED: MAGNESIUM HYDROXIDE 2,400 MG/10 ML CUP PO PRN (09:00)
[2021-12-29] MEDS ORDERED: ATORVASTATIN 40 MG TAB PO SCH (09:00)
[2021-12-29] MEDS ORDERED: CLOPIDOGREL 75 MG TAB PO SCH (09:00)
--- NOTE | 2021-12-29 11:19 | P.DS ---
Providers Date of admission: 12/28/21 05:58 Expected date of discharge: 12/29/21 Attending physician: Alex Bello DO Consults: 12/28/21 06:00 Consult to Anesthesia Routine Consulting Provider: Anesthesia,Services Consult Reason/Comments: Cardiac Surgery Pre-Op 12/28/21 10:14 Consult Physician Routine Consulting Provider: Guero Mathias Consult Reason/Comments: Human Resources Executive Consult: post cardiac surgery Do you want consulting provider notified?: Yes Consult Physician Routine Consulting Provider: Song Sharma Consult Reason/Comments: Centerpuncher Consult: post cardiac surgery Do you want consulting provider notified?: Yes 12/29/21 08:21 Consult Physician Routine Consulting Provider: Nnamdi Mosqueda Consult Reason/Comments: Post TAVR Do you want consulting provider notified?: Already Contacted Primary care physician: Lito Andrade [facility] Course: MEDICAL HISTORY: 1. Calcified aortic valve with severe symptomatic aortic valve stenosis 2. Progressive shortness of breath with activity, symptoms consistent with NYHA class III 3. Coronary artery disease, status post drug eluding stent to the proximal LAD 11/28/2021 4. History of hypertension 5. History of hyperlipidemia 6. Hypothyroid 7. Mild COPD, preoperative FEV1 71% of predicted PROCEDURE: 1. Percutaneous aortic valve implantation using a 23 mm Macy S3 2. Transesophageal echocardiography performed by anesthesia 3. Ultrasound-guided access and repair of right femoral artery access site by Perclose closure device 4. Placement of temporary pacemaker wire 5. Aortic root angiography HISTORY OF PRESENT ILLNESS: This is a 81-year-old female who follows on an outpatient basis with Dr. Andrade for primary care and Dr. Munguia for cardiology. She has a known history of severe aortic stenosis and has been symptomatic with increased exertional dyspnea with activity. She had been referred to structural heart clinic for evaluation for transcatheter aortic valve replacement after heart catheterization and transesophageal echocardiogram were completed. Echocardiography demonstrated normal systolic function with EF 60%, peak/mean gradient 76/44 mmHg. Heart catheterization showed 95% proximal LAD stenosis. After workup was completed STS risk score was calculated along with incremental risk and the patient was felt to be low to moderate risk for ellis rgical aortic valve replacement, however the patient did not want open heart surgery therefore coronary stenting followed by transcatheter aortic valve replacement was recommended. The usual course of TAVR was discussed in detail the patient, risks and benefits were reviewed, shared decision making between cardiology, surgery, and the patient/family took place, and the patient consented to proceed with the procedure. The patient underwent stenting to her proximal LAD prior to her TAVR. HOSPITAL COURSE: The patient was brought to the hospital on 12/28/2021, was taken to the extended stay area, prepared in the usual fashion, and subsequently taken to the cardiac catheterization laboratory where Dr. Bello and Dr. Sharma completed TAVR procedure under general anesthesia with fluoroscopy and MINDY. Prior to the procedure MINDY revealed severely calcified aortic valve with a peak/mean gradient 55/35 mmHg with valve area 0.7 cm. The valve was deployed under rapid ventricular pacing and proceeded without event. At the end of the procedure there was mean gradient 5 mmHg, hemodynamics were felt to be acceptable, and there was no evidence of significant perivalvular leak. Upon completion of the procedure the patient was extubated and was transferred to the cardiovascular intensive care unit where she was recovered and monitored hemodynamically. Her oxygen was titrated down, she was tolerating oral diet, her pain was controlled, follow-up TTE demonstrated normal left ventricular systolic function and no perivalvular leak, and she was ready to be discharged to home on postoperative day #1. She received written and verbal instruction regarding her medications, activity restrictions, signs and symptoms requiring physician notification, and follow-up appointments. Patient Condition at Discharge: Stable Plan - Discharge Summary Discharge Rx Participant: No New Discharge Prescriptions: New Acetaminophen Tab [Tylenol] 1,000 mg PO Q6HR PRN tab PRN Reason: Fever And/ Or Mild Pain (1-3) Continue Aspirin 81 mg PO HS Levothyroxine Sodium [Synthroid] 50 mcg PO QAM Benazepril/Hydrochlorothiazide [Benazepril-Hctz 10-12.5 mg Tab] 1 tab PO BID Oxybutynin Chloride [Ditropan] 5 mg PO BID Omeprazole 20 mg PO Q48H Rosuvastatin [Crestor] 10 mg PO HS #90 tablet Clopidogrel [Plavix] 75 mg PO DAILY #90 tablet Metoprolol Tartrate [Lopressor] 12.5 mg PO BID 30 Days #60 tablet Discharge Medication List Aspirin 81 mg PO HS 10/25/21 [History] Benazepril/Hydrochlorothiazide [Benazepril-Hctz 10-12.5 mg Tab] 1 tab PO BID 10/25/21 [History] Levothyroxine Sodium [Synthroid] 50 mcg PO QAM 10/25/21 [History] Omeprazole 20 mg PO Q48H 10/25/21 [History] Oxybutynin Chloride [Ditropan] 5 mg PO BID 10/25/21 [History] Clopidogrel [Plavix] 75 mg PO DAILY #90 tablet 11/28/21 [Rx] Metoprolol Tartrate [Lopressor] 12.5 mg PO BID 30 Days #60 tablet 11/28/21 [Rx] Rosuvastatin [Crestor] 10 mg PO HS #90 tablet 11/28/21 [Rx] Acetaminophen Tab [Tylenol] 1,000 mg PO Q6HR PRN tab 12/29/21 [Rx] Follow up Appointment(s)/Referral(s): Flynn Munguia MD [STAFF PHYSICIAN] - 01/03/22 2:30 pm (Your appointment 01/03 w/ Dr. Munguia is for groin check (at the [facility]). You also have a 30 day TAVR follow up echo and appointment w/Dr. Munguia 03/08/22@3pm, and a 1 year TAVR follow up echo and appointment w/Dr. Munguia 11/08/22@1pm at the main office on [address]) Lito Andrade MD [Primary Care Provider] - As Needed Clinic,Structural Heart [NON-STAFF] - 03/08/22 2:30 pm (30 day post TAVR valve clinic 03/08/22 before your appointment at Cardiology [facility], and 1 year post TAVR valve clinic appointment 11/08/22 @ 12:30pm before your appointment at Cardiology [facility]) Ambulatory/Diagnostic Orders: Basic Metabolic Panel [LAB.AMB] Time Frame: 03/08/22, Facility: [facility], Location: [facility] Basic Metabolic Panel [LAB.AMB] Time Frame: 11/08/22, Facility: [facility], Location: [facility] Complete Blood Count w/diff [LAB.AMB] Time Frame: 11/08/22, Facility: [facility], Location: [facility] Complete Blood Count w/diff [LAB.AMB] Time Frame: 03/08/22, Facility: [facility], Location: Laboratory [facility] Activity/Diet/Wound Care/Special Instructions: DISCHARGE INSTRUCTIONS: 1. No driving for 1 week, or until physician gives their ok. 2. No lifting, pushing, or pulling more than 5-10 pounds for 1 week. 3. Hold both groins when you cough or sneeze for the next 2 weeks. Bruising is common, but report increased swelling, pain or fever >101F 4. Shower daily. No pool, hot tub, or bathtub for 1 week 5. No powders, lotions, ointments on incisions. 6. No straining, including for bowel movements. Use stool softner if necessary 7. Stairs are not an issue. Go slowly, using handrail and take 1 step at a time. Ambulate several times daily 8. Continue pain control per as needed orders. 9. Take only the medications listed on your discharge form 10. Eat low salt (limited to 2 grams or 2000 milligrams) daily, avoid adding salt, avoid canned/processed foods 11. Take your weight daily in the morning and record, bring with you to your follow up appointments 12. Keep all follow up appointments. You will need a valve clinic appointment at 30 days and 1 year post procedure for follow up 13. You have been referred to and are expected to begin Cardiac Rehab in approximately 4 weeks. 14. You will need antibiotics prior to any dental work, including cleanings, and any surgeries to prevent Endocarditis (bacterial infection in your heart) For any questions or concerns please call your valve coordinators: Shital or Damon @ Discharge Disposition: HOME SELF-CARE
[2021-12-29 11:47] VITALS: BMI 27.8
[2021-12-29 11:50] VITALS: BP 100/68; PULSE 92; RESP 18
--- NOTE | 2021-12-29 12:04 | P.PN ---
Subjective Progress Note Date: 12/29/21 This is a very pleasant 81-year-old female patient with a known history of hypertension, hyperlipidemia, hypothyroidism, gastroesophageal reflux disease and coronary artery disease with previous stenting to the LAD and she is also known to have severe aortic stenosis with a peak gradient of 76 mmHg. She was admitted today electively and had undergone a transcatheter aortic valve implantation utilizing a Macy II prosthetic valve. She is seen today in consultation in the intensive care unit. She is awake and alert in no acute distress. She is continued on oxygen at 2 L/m with O2 saturations in the mid 90s. She is in sinus bradycardia. Blood glucose 131. She is lactated Ringer's at 50 MLS per hour. Chest x-ray reveals evidence of a right hemidiaphragm elevation. No pneumothorax or pleural effusion. Stable cardiomediastinal silhouette. Some basilar atelectasis. Bilateral groin sites are stable. The patient is seen today 12/29/2021 in follow-up in the intensive care unit. She is currently sitting up in a chair at the bedside. Awake and alert in no acute distress. Maintaining good O2 saturations in the 90s on room air. Normal saline at KVO. Postoperative day #1 of her transcatheter aortic valve replacement. No significant events overnight. White count 7.2. Hemoglobin 1 2.2. Sodium 131. Potassium 4.2. BUN 10. Creatinine 0.56. Chest x-ray reveals postoperative changes but no acute cardiopulmonary process. Objective - Vital Signs Vital signs: Vital Signs Temp 97.6 F 12/29/21 08:00 Pulse 92 12/29/21 11:00 Resp 18 12/29/21 11:00 BP 100/68 12/29/21 11:00 Pulse Ox 91 L 12/29/21 11:00 FiO2 Intake & Output 12/28/21 12/29/21 12/29/21 18:59 06:59 18:59 Intake Total 620 750 290 Output Total 500 650 300 Balance 120 100 -10 Weight 69.1 kg 69.1 kg Intake: IV 500 50 Lactated Ringers 1,000 ml 250 @ 50 mls/hr IV .Q20H [facility] Rx#:[id number] ceFAZolin 2 gm In Sodium 50 50 Chloride 0.9% 50 ml @ 100 mls/hr IVPB ONCE ONE Rx# :[id number] Intake, IV Titration 300 Amount Magnesium Sulfate-D5w Pmx 200 1 gm In Dextrose/Water 1 100ml.bag @ 100 mls/hr IVPB Q1H [facility] Rx#: [id number] ceFAZolin 2 gm In Sodium 100 Chloride 0.9% 50 ml @ 100 mls/hr IVPB Q8HR [facility] Rx# :[id number] Oral 120 450 240 Output: Urine 500 650 300 Other: Voiding Method Bedpan Bedpan Bedpan Diaper Diaper Diaper Incontinent Incontinent Incontinent # Voids 1 1 ABP, PAP, CO, CI - Last Documented Arterial Blood Pressure 140/51 - Exam GENERAL EXAM: Alert, pleasant 81-year-old female, on room air, up in a chair at the bedside, comfortable in no apparent distress. HEAD: Normocephalic. EYES: Normal reaction of pupils, equal size. NOSE: Clear with pink turbinates. THROAT: No erythema or exudates. NECK: No masses, no JVD. CHEST: No chest wall deformity. LUNGS: Equal air entry with no crackles, wheeze, rhonchi or dullness. CVS: S1 and S2 normal with no audible murmur, regular rhythm. ABDOMEN: No hepatosplenomegaly, normal bowel sounds, no guarding or rigidity. SPINE: No scoliosis or deformity SKIN: No rashes CENTRAL NERVOUS SYSTEM: No focal deficits, tone is normal in all 4 extremities. EXTREMITIES: Bilateral groin site stable. There is no peripheral edema. No clubbing, no cyanosis. Peripheral pulses are intact. - Labs CBC & Chem 7: 12/29/21 03:46 12/29/21 03:46 Labs: Abnormal Lab Results - Last 24 Hours (Table) 12/26/21 12/28/21 12/28/21 Range/Units 10:29 11:40 11:40 Lymphocytes # 0.7 L (1.0-4.8) k/uL Sodium 134 L (137-145) mmol/L Creatinine 0.44 L (0.52-1.04) mg/dL Glucose 120 H (74-99) mg/dL Calcium 8.0 L (8.4-10.2) mg/dL Magnesium (1.6-2.3) mg/dL Total Protein 5.7 L (6.3-8.2) g/dL Crossmatch See Detail 12/29/21 12/29/21 Range/Units 03:46 03:46 Lymphocytes # 0.7 L (1.0-4.8) k/uL Sodium 131 L (137-145) mmol/L Creatinine (0.52-1.04) mg/dL Glucose 105 H (74-99) mg/dL Calcium (8.4-10.2) mg/dL Magnesium 2.4 H (1.6-2.3) mg/dL Total Protein 6.1 L (6.3-8.2) g/dL Crossmatch Assessment and Plan Assessment: Symptomatic aortic valve stenosis. Status post transcatheter aortic valve implantation via the right percutaneous transfemoral approach with a 23 mm Macy II prosthesis. Postoperative day #1 Coronary artery disease status post stenting to the LAD Hypertension Hyperlipidemia Hypothyroidism Gastroesophageal reflux disease Plan: The patient was seen and evaluated Chest x-ray, medications and labs reviewed Stable and on room air Home once cleared by CT services I have personally seen and examined the patient, performed the documentation and the assessment and plan as written. Number of minutes spent on the visit: 10.
[2021-12-29] MEDS ORDERED: SENNOSIDES-DOCUSATE SODIUM 1 EACH TAB PO SCH (21:00)
--- NOTE | 2021-12-29 21:57 | CA ---
Transthoracic Echo Report Name: Karen Allen Age: 81 Gender: F : 1940 Exam Date: 12/29/2021 08:30 Exam Location: [facility] Ht (in): 62 Wt (lb): 152 Ordering Physician: Juan Hernandez Attending/Referring Phys: David TOWNSEND Toe Former Abena Juan, CLEO Procedure CPT: Indications: Postoperative TAVR Cardiac Hx: Technical Quality: Good Contrast 1: Total Dose (mL): Contrast 2: Total Dose (mL): MEASUREMENTS (Male / Female) Normal Values 2D ECHO LV Diastolic Diameter PLAX 3.3 cm 4.2 - 5.9 / 3.9 - 5.3 cm LV Systolic Diameter PLAX 2.1 cm IVS Diastolic Thickness 1.2 cm 0.6 - 1.0 / 0.6 - 0.9 cm LVPW Diastolic Thickness 1.1 cm 0.6 - 1.0 / 0.6 - 0.9 cm LV Relative Wall Thickness 0.7 RV Internal Dim ED PLAX 3.7 cm LVOT Diameter 1.6 cm LA Systolic Diameter LX 3.8 cm 3.0 - 4.0 / 2.7 - 3.8 cm LA Volume 43.5 cm??? 18 - 58 / 22 - 52 cm??? DOPPLER AV Peak Velocity 280.8 cm/s AV Peak Gradient 31.5 mmHg AV Mean Velocity 200.6 cm/s AV Mean Gradient 17.8 mmHg AV Velocity Time Integral 58.5 cm LVOT Peak Velocity 129.3 cm/s LVOT Peak Gradient 6.7 mmHg AV Area Cont Eq pk 1.0 cm??? MV Area PHT 2.2 cm??? Mitral E Point Velocity 92.8 cm/s Mitral A Point Velocity 127.9 cm/s Mitral E to A Ratio 0.7 MV Deceleration Time 351.0 ms MV E' Velocity 5.3 cm/s Mitral E to MV E' Ratio 17.7 TR Peak Velocity 251.7 cm/s TR Peak Gradient 25.3 mmHg Right Ventricular Systolic Press 29.6 mmHg FINDINGS Left Ventricle Left ventricular ejection fraction is estimated at 60-65 %. Small left ventricular cavity. Mildly increased septal wall thickness. Mildly increased posterior wall thickness. Right Ventricle Mild right ventricular dilatation. Right ventricular systolic pressure within normal limits. Right Atrium Normal right atrial size. Left Atrium Normal left atrial size. No evidence for an atrial septal defect. Mitral Valve Mitral valve thickened. Mitral annular calcification. Mild mitral regurgitation. Aortic Valve No aortic regurgitation. No paravalvular aortic regurgitation. Normal bioprostetic valve with max gradient of 32 mmHg, mean gradient 18 mmHg. Peak velocity 2.8 m/s Tricuspid Valve Mild tricuspid regurgitation. Pulmonic Valve Trace pulmonic regurgitation. Pericardium Normal pericardium. No pericardial effusion. Aorta Normal size aortic root and proximal ascending aorta. CONCLUSIONS LVH with ejection fraction greater than 60% Bioprosthetic valve in stable position with mildly increased gradients consistent with the size of the prosthetic valve Previewed by: Dr. Zac Genao MD (Electronically Signed) Final Date: 29 December 2021 21:57
== END 2021-12-29 12:16 | disposition home or self-care (01) | DRG 267 ==
LOC: 2ORMAIN 12-28 05:58 → 2SICU 12-28 09:27
PROVIDERS: ADMIT Internal Medicine; ATTEND Internal Medicine
PROC: B3101ZZ Fluoroscopy of Thoracic Aorta using Low Osmolar Contrast (ICD-10-PCS; 2021-12-28)
PROC: 02RF38Z Replacement of Aortic Valve with Zooplastic Tissue, Percutaneous Approach (ICD-10-PCS; principal; 2021-12-28 08:00)
PROC: 5A1223Z Performance of Cardiac Pacing, Continuous (ICD-10-PCS; 2021-12-28 08:00)
DX: I08.3 Combined rheumatic disorders of mitral, aortic and tricuspid valves (principal); Z00.6 Encounter for examination for normal comparison and control in clinical research program; I11.9 Hypertensive heart disease without heart failure; J44.9 Chronic obstructive pulmonary disease, unspecified; E03.9 Hypothyroidism, unspecified; R00.1 Bradycardia, unspecified; K21.9 Gastro-esophageal reflux disease without esophagitis; I25.10 Atherosclerotic heart disease of native coronary artery without angina pectoris; E78.5 Hyperlipidemia, unspecified; Z28.310 Unvaccinated for COVID-19; Z95.5 Presence of coronary angioplasty implant and graft; Z79.890 Hormone replacement therapy; Z79.82 Long term (current) use of aspirin; Z79.02 Long term (current) use of antithrombotics/antiplatelets
CPT/HCPCS: 33210; 33362; 71045; 80053; 82330; 83735; 85025; 85027; 85610; 85730; 86850; 86900; 86901; 86920; 93306; 93312; 93320; 93325

== ENCOUNTER → 2021-12-26 | Outpatient (CLI) | payer MEDICARE, BC ==
[2021-12-26 11:20] LABS: Partial Thromboplastin Time 24.7 sec (22.0-30.0); Prothrombin Time 10.6 sec (9.0-12.0)
[2021-12-26 14:50] LABS: HCT 38.1 % (37.2-46.3); HGB 12.8 g/dL (12.0-15.0); MCH 29.9 pg (27.0-32.0); MCHC 33.6 g/dL (32.0-37.0); Mean Platelet Volume 10.4 fL (9.5-12.2); NRBC Per 100 WBC 0 /100 WBCS (0.0-0.0); Platelet Count 227 X 10*3/uL (140-440); RBC 4.28 X 10*6/uL (4.10-5.20); RDW 13.1 % (11.5-14.5); WBC 5.38 X 10*3/uL (4.50-10.00)
[2021-12-26 15:06] LABS: African American GFR (CKD) 97.7 (60.0-200.0); Albumin 4.2 g/dL (3.8-4.9); Albumin/Globulin Ratio 1.62 (1.60-3.17); Anion Gap 9.4 mmol/L (10.00-18.00); BUN/Creat Ratio 21.67 Ratio (12.00-20.00); Calcium 9.2 mg/dL (8.7-10.3); Carbon Dioxide 27.6 mmol/L (20.0-27.5); Globulin 2.6 g/dL (1.6-3.3); Non-African American GFR(CKD) 84.3 (60.0-200.0); Potassium 4.2 mmol/L (3.5-5.5); Total Bilirubin 0.4 mg/dL (0.30-1.20); Total Protein 6.8 g/dL (6.2-8.2)
== END | disposition home or self-care (01) ==
LOC: LABPAT 10:04
PROVIDERS: ATTEND Thoracic Surgery (Cardiothoracic Vascular Surgery)
DX: I35.0 Nonrheumatic aortic (valve) stenosis (principal)
CPT/HCPCS: 80053; 85027; 85610; 85730

== ENCOUNTER → 2022-02-08 | Outpatient (CLI) | payer MEDICARE, BC ==
[2022-02-08 14:37] LABS: Basophils % (A) 1 %; Eosinophils # (A) 0.2 k/uL (0-0.7); Eosinophils % (A) 3 %; HCT 35.8 % (34.0-46.0); HGB 12.1 gm/dL (11.4-16.0); Lymphocytes % (A) 17 %; MCH 30.9 pg (25.0-35.0); MCHC 33.7 g/dL (31.0-37.0); MCV 91.5 fL (80.0-100.0); Mean Platelet Volume 8.4; Monocytes # (A) 0.4 k/uL (0-1.0); Monocytes % (A) 7 %; Neutrophils # (A) 3.9 k/uL (1.3-7.7); Neutrophils % (A) 69 %; Platelet Count 211 k/uL (150-450); RBC 3.91 m/uL (3.80-5.40); RDW 13.5 % (11.5-15.5); WBC 5.6 k/uL (3.8-10.6)
[2022-02-08 14:39] LABS: African American GFR (CKD) >90 (>60 ml/min/1.73 sqM); Anion Gap 5 mmol/L; Blood Urea Nitrogen 15 mg/dL (7-17); Calcium 8.8 mg/dL (8.4-10.2); Carbon Dioxide 30 mmol/L (22-30); Chloride 102 mmol/L (98-107); Glucose 121 mg/dL (74-99); Non-African American GFR(CKD) 85 (>60 ml/min/1.73 sqM); Potassium 4.2 mmol/L (3.5-5.1); Sodium 137 mmol/L (137-145)
== END | disposition home or self-care (01) ==
LOC: LABWHC1 13:57
PROVIDERS: ATTEND Nurse Practitioner Acute Care
DX: Z95.2 Presence of prosthetic heart valve (principal)
CPT/HCPCS: 36415; 80048; 85025

== ENCOUNTER → 2022-11-01 | Outpatient (CLI) | payer MEDICARE, BC ==
[2022-11-01 15:23] LABS: Basophils # (A) 0.04 X 10*3/uL (0.00-0.10); Basophils % (A) 0.6 %; Eosinophils # (A) 0.12 X 10*3/uL (0.04-0.35); Eosinophils % (A) 1.9 %; HCT 40.2 % (37.2-46.3); Lymphocytes # (A) 1.14 X 10*3/uL (0.90-5.00); Lymphocytes % (A) 17.8 %; MCH 28.6 pg (27.0-32.0); MCHC 32.3 d/dL (32.0-37.0); MCV 88.5 FL (80.0-97.0); Mean Platelet Volume 11.2 FL (9.5-12.2); Monocytes # (A) 0.56 X 10*3/uL (0.20-1.00); Monocytes % (A) 8.7 %; NRBC Per 100 WBC 0 X 10*3/uL (0.00-0.01); Neutrophils # (A) 4.52 X 10*3/uL (1.80-7.70); Neutrophils % (A) 70.4 %; Platelet Count 247 X 10*3/uL (140-440); RBC 4.54 X 10*6/uL (4.10-5.20); WBC 6.42 X 10*3/uL (4.50-10.00)
[2022-11-01 15:33] LABS: Blood Urea Nitrogen 13.5 mg/dL (9.0-27.0); Calcium 9.5 mg/dL (8.7-10.3); Carbon Dioxide 25.6 mmol/L (21.6-31.8); Chloride 100 mmol/L (96-109); Glucose 90 mg/dL (70-110); Potassium 4.7 mmol/L (3.5-5.5); Sodium 136 mmol/L (135-145)
== END | disposition home or self-care (01) ==
LOC: LABWHC1 09:41
PROVIDERS: ATTEND Nurse Practitioner Acute Care
DX: I35.0 Nonrheumatic aortic (valve) stenosis (principal)
CPT/HCPCS: 36415; 80048; 85025